=== PATIENT | female | born 1995 | race Caucasian/White ===

== ENCOUNTER 2025-05-27 11:51 | Emergency (ER) | payer BC, SELFPAY ==
[2025-05-27] VITALS (7 sets, daily range): BP systolic 93–125; BP diastolic 71–81; BMI 20.5
--- NOTE | 2025-05-27 12:39 | EDRN ---
Dr. Camarena in room w/ pt at this time.
--- NOTE | 2025-05-27 12:44 | ED.GENMED ---
History of Present Illness
<Lori Camarena DO - Last Filed: 05/27/25 16:29>
General
Chief Complaint: Abdominal Symptoms
Time Seen by Provider: 05/27/25 12:24
History of Present Illness
History of Present Illness:
30-year-old female history of hypertension presenting with periumbilical abdominal pain starting overnight with associated nausea. Patient states that pain is worse with standing and moving around, better with laying down or resting. Patient
denies vomiting or diarrhea. Patient denies dysuria, hematuria or vaginal discharge. Patient states that she has an IUD and does not typically get her period. Patient states that she thought she had subjective fever earlier but was afebrile in
triage.
Phy Exam
<Lori Camarena DO - Last Filed: 05/27/25 16:29>
Physical Exam
Physical Exam:
General: Alert, no acute distress
Head: NCAT
Eyes: clear conjunctiva
Neck: supple
Cardiac: regular rate and rhythm, no murmur
Lungs: clear to auscultation bilaterally. No wheezes, rales, or rhonchi. Speaking full unlabored sentences. No respiratory distress.
Abdomen: soft, nondistended periumbilical tenderness. No right/lower lower quadrant tenderness to palpation. No rebound or guarding.
MSK: no lower extremity edema bilaterally. No deformity
Skin: warm, dry
Neuro: Alert and oriented x3. no focal deficits
Course
<Lori Camarena DO - Last Filed: 05/27/25 16:29>
Orders/Labs/Results
Orders:
Orders
05/27/25 12:42
Iohexol [Omnipaque] See Protocol PO NOW STA
Test Result ONCE
05/27/25 12:43
CT Abd/pel W Iv And Oral Contr Urgent
Comment:
Reason For Exam: periumbilical tenderness
05/27/25 12:47
Ketorolac [Toradol] 15 mg IV NOW STA
Ondansetron Injectable [Zofran] 4 mg IV NOW STA
05/27/25 13:02
CBC/With Diff [Complete Blood Count/With Diff] Urgent
CMP [Comprehensive Metabolic Panel] Urgent
HCG, Serum Qualitative Screen Urgent
Lipase Urgent
05/27/25 13:40
Test Result ONCE
05/27/25 14:27
, Urine Qualitative Screen [HCG, Urine Qualitative Screen] Urgent
Date Specimen was Collected: 05/27/25
Time Specimen was Collected: 14:24
UA Reflex to Culture [Urinalysis Reflex To Culture] Urgent
Date Specimen was Collected: 05/27/25
Time Specimen was Collected: 14:24
Urine Microscopic Reflex Cult Urgent
Urine Culture Urgent
[facility] Source: U
Specimen Description:
Date Specimen was Collected: 05/27/25
Time Specimen was Collected: 14:24
Abnormal Lab Results
05/27/25 05/27/25
13:02 14:27
WBC 11.4 H 10^3/uL
(4.8-10.8)
MCH 32.2 H pg
(27.0-31.0)
Absolute Neuts (auto) 10.7 H 10^3/uL
(1.4-6.5)
Absolute Lymphs (auto) 0.3 L 10^3/uL
(1.2-3.4)
Neutrophils % 94.0 H %
(42.2-75.2)
Lymphocytes % 2.7 L %
(20.5-51.1)
Glucose 111 H mg/dl
(70-99)
Urine Ketones 3+ A
(Negative)
Urine Bacteria (Reflex) Many A
(Negative)
Urine Albumin (Reflex) 1+ A
(Neg - Trace)
05/27/25 13:02
05/27/25 13:02
Vital Signs
Initial and Last Documented VS:
Initial Vital Signs
Temp Pulse Resp BP Pulse Ox
98.4 F 80 16 125/73 100
05/27/25 11:53 05/27/25 11:53 05/27/25 11:53 05/27/25 11:53 05/27/25 11:53
Last Documented Vital Signs
Temp Pulse Resp BP Pulse Ox
98.4 F 90 14 110/76 99
05/27/25 11:53 05/27/25 17:22 05/27/25 17:22 05/27/25 17:22 05/27/25 17:22
<Nathalie Farmer DO - Last Filed: 05/27/25 23:03>
Orders/Labs/Results
Orders:
Orders
05/27/25 12:42
Iohexol [Omnipaque] See Protocol PO NOW STA
Test Result ONCE
05/27/25 12:43
CT Abd/pel W Iv And Oral Contr Urgent
Comment:
Reason For Exam: periumbilical tenderness
05/27/25 12:47
Ketorolac [Toradol] 15 mg IV NOW STA
Ondansetron Injectable [Zofran] 4 mg IV NOW STA
05/27/25 13:02
CBC/With Diff [Complete Blood Count/With Diff] Urgent
CMP [Comprehensive Metabolic Panel] Urgent
HCG, Serum Qualitative Screen Urgent
Lipase Urgent
05/27/25 13:40
Test Result ONCE
05/27/25 14:27
, Urine Qualitative Screen [HCG, Urine Qualitative Screen] Urgent
Date Specimen was Collected: 05/27/25
Time Specimen was Collected: 14:24
UA Reflex to Culture [Urinalysis Reflex To Culture] Urgent
Date Specimen was Collected: 05/27/25
Time Specimen was Collected: 14:24
Urine Microscopic Reflex Cult Urgent
Urine Culture Urgent
[facility] Source: U
Specimen Description:
Date Specimen was Collected: 05/27/25
Time Specimen was Collected: 14:24
Abnormal Lab Results
05/27/25 05/27/25
13:02 14:27
WBC 11.4 H 10^3/uL
(4.8-10.8)
MCH 32.2 H pg
(27.0-31.0)
Absolute Neuts (auto) 10.7 H 10^3/uL
(1.4-6.5)
Absolute Lymphs (auto) 0.3 L 10^3/uL
(1.2-3.4)
Neutrophils % 94.0 H %
(42.2-75.2)
Lymphocytes % 2.7 L %
(20.5-51.1)
Glucose 111 H mg/dl
(70-99)
Urine Ketones 3+ A
(Negative)
Urine Bacteria (Reflex) Many A
(Negative)
Urine Albumin (Reflex) 1+ A
(Neg - Trace)
05/27/25 13:02
05/27/25 13:02
Vital Signs
Initial and Last Documented VS:
Initial Vital Signs
Temp Pulse Resp BP Pulse Ox
98.4 F 80 16 125/73 100
05/27/25 11:53 05/27/25 11:53 05/27/25 11:53 05/27/25 11:53 05/27/25 11:53
Last Documented Vital Signs
Temp Pulse Resp BP Pulse Ox
98.4 F 90 14 110/76 99
05/27/25 11:53 05/27/25 17:22 05/27/25 17:22 05/27/25 17:22 05/27/25 17:22
<Lori Camarena DO - Last Filed: 05/27/25 16:29>
MDM/Problems Addressed
Differential Diagnosis Includes:
Appendicitis, gastritis, IBS, UTI. Lower suspicion of ovarian torsion given no lower abdominal tenderness to palpation
<Lori Camarena DO - Last Filed: 05/27/25 16:29>
*Pulse Oximetry
SaO2: 100
Oxygen Mode of Delivery: Room air
<Nathalie Farmer DO - Last Filed: 05/27/25 23:03>
*Pulse Oximetry
Patient hypoxic: no
*Critical Care Note
Total Time (30-74mins, 75-104mins- exclusive of procedures): Not Applicable
<Lori Camarena DO - Last Filed: 05/27/25 16:29>
Update Note
Update Note:
Labs reviewed. Mild leukocytosis at 11.4 with left shift. UA likely contaminated, low suspicion for UTI given asymptomatic. Pending CT abdomen/pelvis. Patient signed out to Dr. Farmer pending CT imaging
<Nathalie Farmer DO - Last Filed: 05/27/25 23:03>
Update Note
Update Note:
Labs reviewed. Mild leukocytosis at 11.4 with left shift. UA likely contaminated, low suspicion for UTI given asymptomatic. Pending CT abdomen/pelvis. Patient signed out to Dr. Farmer pending CT imaging
Attending Signout Note (Nathalie Farmer DO)
17:00-received signout of 30-year-old female presenting with periumbilical abdominal pain with some nausea. Hemodynamically stable in the ER. Mild leukocytosis. At time of signout, pending CT abdomen pelvis rule out appendicitis. CT without
acute significant pathology. Without concern for severe process. Remains stable on reassessment. Feel stable for discharge. Return precautions discussed and patient verbalized understand
ED Attending Note
<Lori Camarena DO - Last Filed: 05/27/25 16:29>
-
Portions of this chart may have been created with voice recognition software.� Occasional wrong word or��sound alike� substitutions may have occurred due to the inherent limitations of voice recognition software.
Discharge Plan
Departure
Patient Disposition: Home (Routine Discharge)
Date of Disposition: 05/27/25
Time of Disposition: 17:16
Patient with high blood pressure during this ER visit?: No
Condition: Good
Discharge Problem:
Abdominal pain
Instructions: [place] Diet, Abdominal Pain
Prescriptions:
No Action
lisinopril 5 MG tablet
5 mg PO DAILY
norethindrone-e.estradiol-iron [Blisovi 24 Fe] 1 EACH tablet
1 ea PO DAILY
tamsulosin 0.4 MG capsule
0.4 mg PO DAILY Qty: 7 0RF
Referrals:
Ruba Chatterjee MD [Family Provider, Internal Medicine]
Activity Restrictions/Additional Instructions:
You were seen in the emergency department for abdominal pain
You were found to have reassuring laboratory analysis and CT imaging of your abdomen. We suspect that you have a viral gastroenteritis.
Please follow-up closely with your primary care physician.
Return to the emergency department for any worsening of your symptoms, or any development of chest pain, difficulty breathing, abdominal pain with persistent vomiting and inability to tolerate food or liquid by mouth (concern for dehydration),
weakness, headache or confusion, fever greater than 100.4, or any additional symptoms that are concerning to you.
Thank you for choosing [facility].
Interventions
Interventions:
*Risk Screen - Suicide Last Done: 05/27/25 11:53
*General Assessment Last Done: 05/27/25 11:53
*Neglect/Abuse Screening Last Done: 05/27/25 11:53
*ED- Fall Risk Assessment Last Done: 05/27/25 11:53
*ED COVID-19 Vaccine History Last Done: 05/27/25 12:55
*Nursing Disposition Last Done: 05/27/25 17:25
CS-Kupnfl-Yfmnfenphk Assessment Last Done: 05/27/25 13:05
Discharge Date and Time
Discharge Date/Time: 05/27/25 17:29
Print Language: ESTONIAN
[2025-05-27] MEDS: TORADOL 15 MG IV (13:11)
[2025-05-27] MEDS: ZOFRAN 4 MG IV (13:11)
[2025-05-27] MEDS: OMNIPAQUE 50 ML PO (13:11)
[2025-05-27 13:13] LABS: Hematocrit 40.7 % (37.0-47.0); Hemoglobin 13.9 g/dL (12.0-16.0); Mean Corp Hgb Conc. 34.2 g/dL (33.0-37.0); Mean Corpuscular Volume 94.2 fL (81.0-99.0); Nucleated Red Blood Cells % 0 %; Platelet Count 235 10^3/uL (130-400); Red Cell Dist. Width 12.5 % (11.5-14.5)
--- NOTE | 2025-05-27 13:38 | EDRN ---
Pt informed urine spec needed.
[2025-05-27 13:45] LABS: ALT (SGPT) 19 U/L (0-35); AST (SGOT) 34 U/L (14-36); Albumin 4.7 g/dl (3.5-5.0); Alkaline Phosphatase 64 U/L (38-126); Blood Urea Nitrogen 17 mg/dl (7-17); Calcium 9.2 mg/dl (8.4-10.2); Carbon Dioxide 23 mmol/L (22-30); Chloride 106 mmol/L (98-107); Estimated Creatinine Clearance 114 ml/min; Glucose 111 mg/dl (70-99); Lipase 32 U/L (23-300); Potassium 4.9 mmol/L (3.5-5.1); Sodium 138 mmol/L (135-145); Total Protein 7.2 g/dl (6.3-8.2); eGFR > 60.00
[2025-05-27 14:44] LABS: HCG, Urine Qualitative Screen Negative
[2025-05-27 14:48] LABS: Urine Character Slightly Cloudy (Clear)
[2025-05-27 15:04] LABS: Urine Squamous Cell >30 /LPF (Few)
[2025-05-27 15:06] LABS: Urine Red Blood Cell 0-2 /HPF (0-2); Urine White Cell 0-2 /HPF (0-5)
[2025-05-27 16:32] LABS: HCG, Serum Qualitative Screen Negative
--- NOTE | 2025-05-27 17:15 | EDRN ---
Dr. Farmer in room w/ pt (Dr. Camarena reported off to Dr. Farmer when her shift was done).
== END 2025-05-27 17:29 | disposition home or self-care (01) ==
LOC: EMR 11:51
PROVIDERS: Emergency Medicine; EMERGENCY PHYSICIAN Student in an Organized Health Care Education/Training Program; FAMILY PHYSICIAN Internal Medicine
DX: R10.9 Unspecified abdominal pain (principal); I10 Essential (primary) hypertension; R11.0 Nausea
CPT/HCPCS: 99284; 96374; 96375; 74177; 80053; 81003; 81015; 81025; 83690; 84703; 85025; 87086; Q9967